=== PATIENT | female | born 1950 | race Caucasian/White ===

== ENCOUNTER 2019-01-27 07:10 | Emergency (ER) | payer MEDICARE, OTHER, SELFPAY ==
[2019-01-27 07:12] VITALS: BP 137/83; PULSE 87; RESP 14; TEMP 36.2; O2SAT 98; BMI 26.2
--- NOTE | 2019-01-27 07:18 | CT_ITS ---
STUDY: CT ABDOMEN AND PELVIS WITHOUT CONTRAST REASON FOR EXAM: Female, 68 years old. Left flank pain for 2 days. RADIATION DOSAGE (If Supplied By Facility): CTDIvol = ( 6.92 ) mGy, DLP = ( 359.55 ) mGycm TECHNIQUE: Transaxial images were obtained from the dome of the diaphragm to the symphysis pubis without oral contrast, and without intravenous contrast. Sagittal and coronal images were reconstructed. Individualized dose optimization techniques were used for this CT. COMPARISON: None. FINDINGS: The visualized lung bases are unremarkable. The heart is midline in position. The liver is enlarged. There is a hypodense lesion in the dome of the liver with questionable small peripheral calcification measuring about 4.8 cm with low attenuation value suggestive of cyst. There is another similar lesion in the anterior segment of the right lobe of the liver measuring about 2 cm. Further evaluation with ultrasound is recommended. Normal gallbladder and extrahepatic biliary system. Normal spleen. Normal pancreas. Normal bilateral adrenal glands. There is a 2.8 cm low-density lesion/cyst in the right kidney. There is a 2 mm nonobstructing stone in the upper pole of the right kidney. There is a 3 mm stone in the midpole of the left kidney. There is no evidence of hydronephrosis. Normal visualized stomach. Normal small intestine. There is fecal retention. There is mild diverticulosis of the descending colon. There is focal inflammatory changes, thickening with pericolonic stranding in the mid aspect of the descending colon consistent with acute diverticulitis. The appendix is visualized and appears normal. There is mild tortuosity of the abdominal aorta without evidence of aneurysm. Normal inferior vena cava. Normal retroperitoneum. Normal urinary bladder. There is absence of the uterus consistent with a prior hysterectomy. There is a small umbilical hernia containing fat. There are diffuse degenerative changes of the visualized lumbar spine. CT/Abdomen/Pelvis without Cont IMPRESSION: 1. Focal acute diverticulitis of the descending colon. No evidence of drainable abscess or free air. 2. Hepatomegaly. 3. Liver lesions as scribed above likely representing cysts better evaluated by ultrasound. 4. Small bilateral nonobstructing renal stones without evidence of hydronephrosis. 5. Right renal cyst. 6. Small umbilical hernia containing fat. Electronically Signed: Jemal Forrest MD at 9:02 EDT Tel , Service support ,
--- NOTE | 2019-01-27 07:23 | ED.DCSUM_ITS ---
History of Present Illness Chief Complaint: Flank Pain Informant: Patient Onset: Yesterday Current Severity: Mild Narrative: The patient presents complaining of left flank pain that began yesterday evening 10 PM, she is had normal bowel bladder habits, no nausea or vomiting no fever the pain was worse when she lay flat better when she more upright, presents the emergency department indicating the pain has resolved now she has history of hyp ertension hypothyroidism no GI ailments prior colonoscopy showed polyps only no exposures no antibiotics no ill contacts no tainted food currently again asymptomatic Past Medical History - Allergies and Home Meds Allergies/Adverse Reactions: Allergies No Known Allergies Allergy (Verified 01/27/19 07:15) Primary Care Physician: Luisito Shelton III, MD [Primary Care Provider] - Past Medical History: - - None except as above Review of Systems General: Denies: Chills, Fever, Sweats Eyes: Denies: Visual changes - bilaterally, Diplopia ENT: Denies: Rhinorrhea, Sore throat Cardiovascular: Denies: Chest pain, Palpitations Respiratory: Denies: Dyspnea, Cough, Dyspnea on exertion Gastrointestinal: Reports: Abdominal pain. Denies: Nausea, Vomiting, Diarrhea, Melena, Hematochezia Genitourinary: Denies: Dysuria, Hematuria, Frequency Musculoskeletal: Denies: Back pain, Extremity Pain Skin: Denies: Rash, Wounds Neurological: Denies: Headache, Weakness, Numbness Physical Exam Vital Signs/Narrative: Vital Signs Temp Pulse Resp BP Pulse Ox 01/27/19 07:12 97.1 F L 87 14 137/83 H 98 General: Well nourished, Well developed, No Acute Distress Head: Normocephalic, Atraumatic Eyes: Perrl, EOMI ENT: Moist mucous membranes, No rhinorrhea Neck: Supple, Nontender Cardiovascular: Regular rate, Regular rhythm, No murmurs Respiratory: No distress, CTA bilaterally, Chest nontender Abdomen: Soft, Nontender, Nondistended, Normal bowel sounds, - - Her abdomen is very soft she complains of pain to the left lower abdomen when it occurs but this area and the rest of her time abdominal exam is unremarkable the flanks unremarkable at this time she cannot explain why she would become a symptomatic she has not taken anything Back: Nontender, Normal Inspection Extremities: Nontender, No edema Skin: Normal color, No rash Neurological: Alert, Oriented x3, Cranial nerves II-XII grossly intact, Normal Strength, Normal Sensation Psychological: Normal affect, Normal Mood Diagnostic/Tx/Re-eval - Medical Decision Making Given all the above and her age screening labs urinalysis IV fluids pain management if needed CT abdomen Patient screening labs are all generally unremarkable please see those reports, the CT abdomen pelvis shows what appears to be diverticulitis descending colon no abscess no other acute abnormality please see that report on reevaluation she is resting company the bed no change in her status as above we discussed inpatient versus outpatient management she wants to go home she will be started on Flagyl and Cipro Naprosyn for pain she will follow-up with her family physicians for further management and possibly her gastroenterology attending, and return for change in symptoms she is comfortable his plan again wants to go home does not feel admission is warranted Home stable Final impression Diverticulitis, left-sided abdominal pain ED Disposition - Plan for ED Patient: Diagnosis: Diverticulitis Instructions: Diverticulitis Prescriptions: Ciprofloxacin [Cipro] 500 mg PO BID #14 tab Prescription Printed metroNIDAZOLE [Flagyl] 500 mg PO Q8H #21 tab Prescription Printed Naproxen [Naprosyn] 500 mg PO BID PRN #20 tab Prescription Printed Referrals: Luisito Shelton III, MD [Primary Care Provider] -
[2019-01-27 08:01] LABS: Absolute Lymphocyte Count 1.59 X10^3/uL (0.83-4.51); Absolute Neutrophil Count 7.7 X10^3/uL (2.0-7.7); Basophil# 0.03 X10^3/uL; Basophil% 0.3 % (0-1); Eosinophil# 0.17 X10^3/uL; Eosinophils% 1.7 % (0-5); Hematocrit 40.1 % (37-47); Hemoglobin 13.3 g/dL (12.0-15.0); Lymphocyte # 1.59 X10^3/ul (4.0); Lymphocyte % 15.5 % (19-41); Mean Corp Hgb Conc 33.2 g/dL (32-36); Mean Corpuscular Hgb 31.7 pg (27.0-32.0); Mean Corpuscular Volume 95.7 fL (81-99); Monocyte# 0.74 X10^3/uL; Monocyte% 7.2 % (0-10); NRBC Flagged by Analyzer 0 % (0-5); Neutrophil # 7.68 X10^3/uL (2.7-7.7); Platelet Count 192 K/mm3 (150-450); RBC Distribution Width CV 12.4 % (11.6-14.6); RBC Distribution Width SD 43.3 fl (35.1-43.9); Red Blood Count 4.19 M/mm3 (4.2-5.4); White Blood Count 10.2 K/mm3 (4.4-11.0)
[2019-01-27] MEDS: 0.9% Normal Saline 1,000 ML 125 ML IV (08:12)
[2019-01-27] MEDS: Ondansetron 4 MG/2 ML Vial IV (08:14)
[2019-01-27 08:17] LABS: AST(SGOT) 17 U/L (15-37); Alanine Aminotransfer ALT/SGPT 25 U/L (13-56); Alkaline Phosphatase 92 U/L (45-117); Anion Gap 8 (5-15); BUN 10 mg/dL (7-18); BUN/Creat Ratio 13.2 RATIO (10-20); Bilirubin, Direct 0.15 mg/dL (0.00-0.30); Chloride 104 mmol/L (98-107); Creatinine, Serum 0.76 mg/dL (0.55-1.02); EST Glomerular Filtration Rate 81 mL/min (>60); Est Glom Filt Rate - Afr Amer 99 mL/min (>60); Estimated Creatinine Clearance 51.81 ml/min; Globulin 3.6 g/dL (2.2-4.2); Glucose 112 mg/dL (74-106); Lipase 76 U/L (73-393); Protein, Total 7.6 g/dL (6.4-8.2); Sodium Level 141 mmol/L (136-145)
[2019-01-27 08:24] LABS: Color, Urine Yellow (Yellow); Glucose, Dipstick Normal (Normal); Ketone-Dipstick Negative (Negative); Leukocyte Esterase-Dipstick 100 /ul (Negative); Nitrite-Dipstick Negative (Negative); Occult Blood-Urine 25 /ul (Negative); Protein-Dipstick Negative (Negative); Urine Bilirubin Dipstick Negative (Negative); Urine Clarity Clear (Clear); Urine Urobilinogen Normal (Normal)
[2019-01-27 08:33] LABS: Red Blood Cells-Urine 0-5 SEEN /hpf (0-5); Squamous Epithelial Cells - UA 0-5 SEEN /hpf (5-10); White Blood Cells 0-5 SEEN /hpf (0-5)
[2019-01-27 08:34] LABS: Bacteria RARE /hpf (None Seen); Mucous, Urine 1+ /hpf (<or=2+)
[2019-01-27] MEDS: metroNIDAZOLE 500 MG/100 ML BAG 100 MG IV (10:10)
[2019-01-27 10:15] VITALS: RESP 18
[2019-01-27] MEDS: Ciprofloxacin 400 MG/200 ML BAG 200 MG IV (11:16)
[2019-01-27 12:32] VITALS: RESP 18
== END 2019-01-27 12:38 | disposition home or self-care (01) ==
LOC: ED 07:32
PROVIDERS: Emergency Provider Emergency Medicine; Family Provider Family Medicine; PCP Family Medicine
DX: K57.32 Diverticulitis of large intestine without perforation or abscess without bleeding (principal)
CPT/HCPCS: 74176; 80048; 80076; 81001; 83690; 85025; 96361; 96365; 96367; 96375; 99283; J7030; A4216; J0744; J2405

== ENCOUNTER → 2019-02-12 07:45 | Outpatient (CLI) | payer MEDICARE, OTHER, SELFPAY ==
[2019-01-27 07:12] VITALS: BMI 26.2
--- NOTE | 2019-02-12 07:49 | US_ITS ---
STUDY: ABDOMINAL ULTRASOUND - RIGHT UPPER QUADRANT REASON FOR VISIT: Female, 68 years old. History of hepatic cysts. TECHNIQUE: Ultrasound evaluation of the right upper quadrant was performed with real-time and static hodgson-scale imaging. TECHNICAL QUALITY: Adequate. COMPARISON: Comparison is made with prior CT scan of the abdomen dated January 27, 2019. FINDINGS: Liver: The liver measures 17.6 cm. There is increased echogenicity consistent with fatty infiltration. The bile ducts are within normal limits. There is hepatic color flow. The direction of portal flow is hepatopetal. There is a 2.5 cm x 2.1 Joby by 1.1 cm cyst in the right lobe. There is also evidence of a 5.4 cm x 4.8 cm x 3.3 cm septated cyst. This corresponds to the CT findings. Gallbladder: Normal distended gallbladder. The gallbladder wall measures 2.4 mm. There is a negative sonographic Wong's sign. There is no pericholecystic fluid. There are no gallstones. Common Bile Duct (C.B.D.): The common bile duct measures 2.6 mm. Pancreas: Normal size of the head, body and tail of the pancreas. There is normal echogenicity of the pancreas. There is no demonstrated pancreatic mass or cyst. Right Kidney: Normal size of the right kidney. The right kidney measures 12.0 cm x 6.3 cm x 4.8 cm. Normal renal cortex. The right cortex measures 1.2 cm. There is a 3.3 cm x 2.8 cm x 2.8 cm cyst. There is no right hydronephrosis. US/Liver IMPRESSION: Hepatic cysts corresponding to the CT findings. Right renal cyst. Electronically Signed: Keith Winston, at 14:28 EDT , Service support ,
== END ==
PROVIDERS: Family Provider Family Medicine; PCP Family Medicine; Referring Provider Family Medicine; Visit Provider Family Medicine
DX: K76.89 Other specified diseases of liver (principal)
CPT/HCPCS: 76705

== ENCOUNTER 2019-08-21 06:57 | Day surgery (SDC) | payer MEDICARE, OTHER, SELFPAY ==
[2019-07-19 08:55] VITALS: BMI 26.2
--- NOTE | 2019-07-19 08:55 | HP_ITS ---
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 Is patient in pain?: No Allergies No Known Allergies Allergy (Verified 07/19/19 08:45) Medications cholecalciferol (vitamin D3) 4,000 unit capsule 4,000 unit PO DAILY 07/19/19 [History] estradiol 1 g VAGINAL QWEEK 07/19/19 [History Confirmed 07/19/19] hydrochlorothiazide 12.5 mg capsule PO 07/19/19 [History Confirmed 07/19/19] hydrocortisone 1 % topical cream 1 applic TOPICAL BID PRN 07/19/19 [History Confirmed 07/19/19] levothyroxine 50 mcg tablet PO 07/19/19 [History Confirmed 07/19/19] magnesium 30 mg tablet 30 mg PO DAILY 07/19/19 [History Confirmed 07/19/19] multivitamin,gx-hpva-mestadnm 1 tab PO DAILY 07/19/19 [History Confirmed 07/19/19] zolpidem 10 mg tablet PO 07/19/19 [History Confirmed 07/19/19] Is last menstrual period known: No Post menopausal: Yes Patient : No PFSH Medical History (Updated 07/19/19 @ 08:52 by Troy Shelton MD) Personal history of colonic polyps (Acute) Family history of malignant neoplasm of colon in first degree relative diagnosed when younger than 60 years of age (Acute) History of diverticulitis (Acute ~01/2019) History of melanoma (Acute) Hypothyroidism (Acute) Surgical History (Updated 07/19/19 @ 08:43 by Cesia Cruz) History of colonoscopy (Acute ~2014) History of partial hysterectomy (Acute) History of tonsillectomy (Acute) Family History (Updated 07/19/19 @ 08:44 by Cesia Cruz) Mother Breast cancer Sister Breast cancer Colon cancer Father Cancer lymphoma Social History (Updated 07/19/19 @ 08:55 by Troy Shelton MD) Smoking Status: Former smoker HPI HPI HPI: BROOKE SNYDER, is a 68 F who presents to the office today for HPI HPI Surgical H&P: Yes HPI: BROOKE SNYDER, is a 68 F who presents to the office today for surgical consultation regarding a family history of colon cancer in her sister at age 55 and a personal history of previous colon polyps. The patient most recently had a colonoscopy performed by Dr. Nathaniel Rowe on August 08, 2014. No polyps were identified at that time five-year follow-up was recommended. It is of note that the patient enjoys good health. She did present to the emergency room on January 27, 2019 because of left flank pain. A CT scan was felt to be consistent with acute descending colon diverticulitis. The patient had had a significant amount of nuts prior to that. It also detected an umbilical hernia. There was hepatomegaly. There were liver lesions felt likely to be cysts. Some small renal stones and renal cysts. Her white blood cell count at that time was 10.2 with a hemoglobin 13.3 hematocrit 4.1 and platelet count 192,000. BUN creatinine normal. Liver function tests normal. On February 9019 she had a liver ultrasound. That confirmed hepatic cysts correlating with the CT findings and a right renal cyst. She denies any change of bowel habits. No bright red blood per rectum or melena. No diarrhea. No abdominal pain. She otherwise enjoys good health. She exercises routinely at least 3 times per week. ROS General General: No weight change, appetite, fatigue, colon cancer, breast cancer or weakness HEENT HEENT: No difficulty swallowing, eye injury, eye surgery, swollen glands or hoarseness Endo Endocrine: No thyroid disease, diabetes mellitus, thyroid cancer, Hair loss, heat intolerance or cold intolerance Musc Musculoskeletal: No back problems, arthritis, rheumatoid arthritis, gout or joint pain Cardio Cardiovascular: No murmur, pacemaker, heart disease, atrial fibrillation, high blood pressure, heart attack, heart stent, palpitations, shortness of breat with exertion or chest pain Resp Respiratory: No shortness of breath, No sleep apnea, No cough, No COPD, No asthma, No emphysema, No wheezing Gastro Gastrointestinal: No abdominal pain, No nausea or vomiting, No diarrhea, No constipation, No blood in stool, No acid reflux, No hemorrhoids, No ulcers, No gallbladder problem, No black,tarry stools Huey Hematologic: No blood thinners, No blood disorders, No bleeding, No anemia, No blood clots Neuro Neurologic: No weakness Exam Const General: cooperative, healthy appearing, comfortable, no acute distress Nutritional Appearance: average body habitus Orientation: alert, awake, oriented x3 HENMT Head: normal to inspection Chest Chest palpation & inspection: normal inspection of the chest Resp Effort & Inspection: normal respiratory effort Auscultation: clear to auscultation bilaterally Cardio Rate: regular rate Rhythm: regular rhythm Heart Sounds: no murmurs GI Palpation: soft, no hepatosplenomegaly Auscultation: normal bowel sounds Neuro Cognition: normal cognition Extrem General: no calf tenderness bilaterally Psych Affect: normal affect Assessment & Plan Problems 1. Family history of malignant neoplasm of colon in first degree relative diagnosed when younger than 60 years of age Z80.0 2. Personal history of colonic polyps Z86.010 Plan I recommended the patient a colonoscopy with possible biopsy or polypectomy as indicated. She is aware of the technique, benefit, risk of alternatives. At her most recent colonoscopy performed by Dr. Nathaniel Rowe she required fentanyl and 7 mg of Versed and Benadryl as well. With that in mind we will proceed with monitored anesthesia care. Also to she has had a bout of descending colon diverticulitis January 2019 and she had not previously had any bouts. I appreciate the opportunity of assisting with her surgical care Cc: Dr. Luisito Shelton, III Troy Shelton M.D., F.A.C.S. Coding Level of Care Code Off vis,new,level 3 Diagnoses Family history of malignant neoplasm of colon in first degree relative diagnosed when younger than 60 years of age Z80.0 Personal history of colonic polyps Z86.010 07/19/19 0855 <Electronically signed by Troy shankar MD> Date _ Troy Shelton MD I have re-examined the patient. There are no clinical changes since date of exam.
[2019-08-21] VITALS (7 sets, daily range): BP systolic 103–121; BP diastolic 68–79; PULSE 70–76; RESP 14–16; TEMP 36.6–36.8; O2SAT 97–98; BMI 25.6
[2019-08-21] MEDS: Lactated Ringers 1,000 ML 100 ML IV (07:24)
--- NOTE | 2019-08-21 08:00 | COLBX_PTH ---
PATIENT: BROOKE SNYDER LOC: EN U#:[id number] AGE/SX: 68/F ROOM: RE08/21/[address]: Dr. Troy Shelton MD : 1950 BED: DIS: 08/21/2019 SPEC #: [id number] RECD: 08/21/19 09:17 STATUS: RACHAEL RELuis #: [id number] TRISH: 08/21/19 08:[address]: Troy Shelton DEPT: SURGICAL PATHOLOGY RECD BY: René Ruiz ENTERED: 08/21/19 10:48 SP TYPE: COLON BX OT DR: Dr. Luisito Shelton III, MD Tissues: Sigmoid colon biopsy Procedures: Surgery Specimen Level IV HEADER OPERATION: Colonoscopy PRE-OP DIAGNOSIS: Colon polyps TISSUE SUBMITTED: Proximal sigmoid polyp MICROSCOPIC DIAGNOSIS Proximal sigmoid polyp, biopsy: Hyperplastic polyp. SJ:ezio 08/22/19 MICROSCOPIC DESCRIPTION Slides are reviewed. GROSS DESCRIPTION Received in fixative is one container labeled with the patient's name and designated proximal sigmoid polyp. The specimen consists of one irregular fragment of light martini soft tissue that measures 0.6 x 0.5 x 0.1 cm. The specimen is totally submitted in one cassette. / SJ:ezio 08/21/19 TC:1 CPT: 90070
--- NOTE | 2019-08-21 08:25 | OP.CCLET_ITS ---
08/21/2019 Luisito Shelton [address] [place] [address] Re : Colonoscopy procedure for Geovanny Calderon Dear Dr. Shelton This procedure was performed on Wednesday, August 21, 2019. My impressions and recommendations are as follows: Impressions : - One 6 mm polyp in the proximal sigmoid colon, removed with a cold snare. Resected and retrieved. - Diverticulosis in the sigmoid colon. - The examination was otherwise normal. Recommendations : - Discharge patient to home. - Resume previous diet. - Continue present medications. - Repeat colonoscopy in 5 years for surveillance. - Telephone my office for pathology results in 1 week. My findings are described in the full procedure note, which is enclosed. If I can be of further assistance, please feel free to contact me at Doctor phone number(s): Work: . Sincerely, Troy Shelton MD 08/21/2019 8:25:29 AM This report has been signed electronically.
--- NOTE | 2019-08-21 08:25 | OP.COLON_ITS ---
Patient Name: Geovanny Calderon Procedure Date: 08/21/2019 7:55 AM Date of : 1950 Age: 68 Procedure: Colonoscopy Indications: High risk colon cancer surveillance: Personal history of colonic polyps Providers: Troy Shelton MD Referring MD: Luisito Shelton Iii Medicines: See the Anesthesia note for documentation of the administered medications Patient Profile: Last Colonoscopy: August 2014. Complications: No immediate complications. Procedure: Pre-Anesthesia Assessment: - Prior to the procedure, a History and Physical was performed, and patient medications and allergies were reviewed. The patient's tolerance of previous anesthesia was also reviewed. The risks and benefits of the procedure and the sedation options and risks were discussed with the patient. All questions were answered, and informed consent was obtained. Prior Anticoagulants: The patient has taken no previous anticoagulant or antiplatelet agents. ASA Grade Assessment: II - A patient with mild systemic disease. After reviewing the risks and benefits, the patient was deemed in satisfactory condition to undergo the procedure. After I obtained informed consent, the scope was passed under direct vision. Throughout the procedure, the patient's blood pressure, pulse, and oxygen saturations were monitored continuously. The Colonoscope was introduced through the anus and advanced to the cecum, identified by appendiceal orifice and ileocecal valve. The colonoscopy was performed without difficulty. The patient tolerated the procedure well. The quality of the bowel preparation was good. The ileocecal valve and the appendiceal orifice were photographed. Scope In: 8:03:48 AM Scope Withdrawal Time 0 hours 9 minutes 25 seconds Scope Out: 8:19:30 AM Total Procedure Duration Time 0 hours 15 minutes 42 seconds Findings: The perianal and digital rectal examinations were normal. A 6 mm polyp was found in the proximal sigmoid colon. The polyp was sessile. The polyp was removed with a cold snare. Resection and retrieval were complete. Multiple diverticula were found in the sigmoid colon. The exam was otherwise without abnormality. Impression: - One 6 mm polyp in the proximal sigmoid colon, removed with a cold snare. Resected and retrieved. - Diverticulosis in the sigmoid colon. - The examination was otherwise normal. Recommendation: - Discharge patient to home. - Resume previous diet. - Continue present medications. - Repeat colonoscopy in 5 years for surveillance. - Telephone my office for pathology results in 1 week. Procedure Code(s): --- Professional --- 92664, Colonoscopy, flexible; with removal of tumor(s), polyp(s), or other lesion(s) by snare technique Diagnosis Code(s): --- Professional --- Z86.010, Personal history of colonic polyps D12.5, Benign neoplasm of sigmoid colon K57.30, Diverticulosis of large intestine without perforation or abscess without bleeding CPT copyright 2017 [employer]. All rights reserved. The codes documented in this report are preliminary and upon assistant case manager review may be revised to meet current compliance requirements. Troy Shelton MD 08/21/2019 8:25:29 AM This report has been signed electronically. Number of Addenda: 0 Note Initiated On: 08/21/2019 7:55 AM
--- NOTE | 2019-08-22 15:02 | PCM.HP.STD ---
Problem List (1) Personal history of colonic polyps Status: Acute (2) Family history of malignant neoplasm of colon in first degree relative diagnosed when younger than 60 years of age Status: Acute History of Present Illness Date of Admission: 08/21/19 The patient is a 68 year old F this patient has a personal history of colon polyps and a family history of colon cancer in her sister who at age 55 developed disease. Her previous colonoscopy was August 08, 2014. January 2019 she had a bout of diverticulitis. She presents now for endoscopic evaluation. Past Medical History Medical History: Medical History (Last Updated 07/19/19 @ 08:42 by Cesia Cruz) Personal history of colonic polyps (Acute) Z86.010 Family history of malignant neoplasm of colon in first degree relative diagnosed when younger than 60 years of age (Acute) Z80.0 History of diverticulitis Onset Date: ~01/2019 Z87.19 History of melanoma Z85.820 Hypothyroidism E03.9 Allergies latex Allergy (Verified 08/21/19 07:06) Rash Home Medications: Ambulatory Orders Medication Instructions Recorded cholecalciferol (vitamin D3) 4,000 4,000 unit PO DAILY 07/19/19 unit capsule estradiol 1 g VAGINAL QWEEK 07/19/19 hydrochlorothiazide 12.5 mg capsule 12.5 mg PO DAILY 07/19/19 hydrocortisone 1 % topical cream 1 applic TOPICAL BID PRN 07/19/19 levothyroxine 50 mcg tablet 50 mcg PO DAILY 07/19/19 multivitamin,wa-zoqf-uztjeveq 1 tab PO DAILY 07/19/19 zolpidem 10 mg tablet 10 mg PO PRN PRN 07/19/19 Surgical History: Surgical History (Last Updated 07/19/19 @ 08:43 by Cesia Cruz) History of colonoscopy Onset Date: ~2014 Z98.890 History of partial hysterectomy Z90.711 History of tonsillectomy Z90.89 Smoking Status: Former smoker Tobacco Use: Non-smoker Review of Systems Constitutional: Denies: Anorexia Cardiovascular: Denies: Chest Pain Respiratory: Denies: Cough Gastrointestinal: Denies: Abdominal Pain, Melena Endocrine: Denies: Change in Body Habitus VTE Information - Inpt Only VTE Present on Admission: No - Physical Exam Vitals/I&O's: Vital Signs Temp Pulse Resp BP Pulse Ox 98.3 F 74 16 113/79 98 08/21/19 08:39 08/21/19 08:39 08/21/19 08:39 08/21/19 08:39 08/21/19 08:39 Oxygen Delivery Method Room Air Weight: 156 lb 4.924 oz Body Mass Index (BMI) 25.6 Intake and Output for Last 24 Hours 08/20/19 08/21/19 08/22/19 23:59 23:59 23:59 Intake Total 500 / 500 Balance 500 / 500 General: Alert, Oriented x3, Cooperative, No apparent distress Lungs: Clear to auscultation Cardiovascular: Regular rate, Regular Rhythm Abdomen: Bowel Sounds Present, Soft Assessment/Plan All Active Problems (Last Updated 07/19/19 @ 08:42 by Cesia Cruz) Personal history of colonic polyps (Acute) Family history of malignant neoplasm of colon in first degree relative diagnosed when younger than 60 years of age (Acute) I plan to proceed with a surveillance colonoscopy with possible biopsy or polypectomy is indicated. The patient is aware of the technique, benefit, risk, alternatives. We will proceed as noted. Additional details can be found in the previous office note. Troy Shelton M.D., F.A.C.S.
== END 2019-08-21 09:13 | disposition home or self-care (01) ==
LOC: EN 06:58 → AC 06:59 → ACINP 07:53 → AC 07:53
PROVIDERS: PCP Family Medicine; Referring Provider Family Medicine; Visit Provider Surgery
PROC: 0DJD8ZZ Inspection of Lower Intestinal Tract, Via Natural or Artificial Opening Endoscopic (ICD-10-PCS; CPT 45378; principal; 2019-08-21 07:55)
DX: Z12.11 Encounter for screening for malignant neoplasm of colon (principal); Z86.010 Personal history of colon polyps; K57.30 Diverticulosis of large intestine without perforation or abscess without bleeding; D12.5 Benign neoplasm of sigmoid colon; Z80.0 Family history of malignant neoplasm of digestive organs; E03.9 Hypothyroidism, unspecified; Z85.820 Personal history of malignant melanoma of skin; Z79.899 Other long term (current) drug therapy; Z87.891 Personal history of nicotine dependence
CPT/HCPCS: 45385; 88305; J7120; J2405

== ENCOUNTER → 2023-04-08 | Outpatient (CLI) | payer MEDICARE, OTHER, SELFPAY ==
--- NOTE | 2023-04-08 09:34 | EKG12_ITS ---
Test Reason : PRE OP Blood Pressure : / mmHG Vent. Rate : 078 BPM Atrial Rate : 078 BPM P-R Int : 174 ms QRS Dur : 092 ms QT Int : 436 ms P-R-T Axes : 070 035 135 degrees QTc Int : 497 ms Sinus rhythm with Premature atrial complexes ST & T wave abnormality, consider lateral ischemia Prolonged QT Abnormal ECG No previous ECGs available Confirmed by [employer] MCKENNA, CELSA ([id number]), editor in chief newspaper LEXI CHAUHAN ([id number]) on 04/18/2023 7:32:24 AM Referred By: Jovany Garcia Confirmed By:ANNIE MARINELLI MD
== END | disposition home or self-care (01) ==
LOC: PSN 09:30
PROVIDERS: PCP Family Medicine; Referring Provider Physician Assistant; Visit Provider Physician Assistant
DX: Z01.810 Encounter for preprocedural cardiovascular examination (principal)
CPT/HCPCS: 93005

== ENCOUNTER → 2023-05-04 | Outpatient (CLI) | payer MEDICARE, OTHER, SELFPAY ==
[2023-05-04 16:10] LABS: Hematocrit 37.8 % (37-47); Hemoglobin 12.4 g/dL (12.0-15.0); Mean Corp Hgb Conc 32.8 g/dL (32-36); Mean Corpuscular Hgb 32.4 pg (27.0-32.0); Mean Corpuscular Volume 98.7 fL (81-99); Platelet Count 209 K/mm3 (150-450); RBC Distribution Width SD 43.8 fl (35.1-43.9); Red Blood Count 3.83 M/mm3 (4.2-5.4); White Blood Count 5.9 K/mm3 (4.4-11.0)
[2023-05-04 16:28] LABS: Anion Gap 5 (5-15); BUN 19 mg/dL (7-18); BUN/Creat Ratio 27.3 RATIO (10-20); Calcium,Total 8.6 mg/dL (8.5-10.1); Chloride 105 mmol/L (98-107); EST Glomerular Filtration Rate 88 mL/min (>60); Est Glom Filt Rate - Afr Amer 107 mL/min (>60); Glucose 95 mg/dL (74-106); Potassium 3.8 mmol/L (3.5-5.1); Sodium Level 141 mmol/L (136-145)
== END | disposition home or self-care (01) ==
LOC: LAB 15:09
PROVIDERS: PCP Family Medicine; Referring Provider Physician Assistant Surgical; Visit Provider Physician Assistant Surgical
DX: S83.242D Other tear of medial meniscus, current injury, left knee, subsequent encounter (principal)
CPT/HCPCS: 36415; 80048; 85027

== ENCOUNTER 2024-09-14 08:00 | Day surgery (SDC) | payer MEDICARE, OTHER, SELFPAY ==
--- NOTE | 2024-09-10 15:22 | PAT.ANE_ITS ---
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 When Was Last Pacemaker Check QUESTION #4 FULL TEXT: You/Your Family Experience fever (hyperthermia) with Anesthesia Last Oral Intake Last Oral intake: Last Oral Intake NPO since Meds taken in AM with sips of water? 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 Female Yes 09/10/24 15:12 HX of Motion Sickness No 09/10/24 15:12 HX of N/V After Surgery No 09/10/24 15:12 Non-Smoker Yes 09/10/24 15:12 Duration of Surgery greater No 09/10/24 15:12 than 60 minutes Number of Risk Factors 2 09/10/24 15:12 PONV Score Moderate Risk 09/10/24 15:12 Height & Weight Height & Weight: Anesthesia: Height & Weight Height 5 ft 4 in 07/18/24 08:50 Respiratory Assessment Respiratory Assessment - cap machine operator: Respiratory Tract Infection Hx - cap machine operator Hx Respiratory Tract Infection No 09/10/24 15:12 STOP Sleep Apnea STOP Sleep Apnea - cap machine operator: STOP Sleep Apnea - cap machine operator Hx Hypertension No: BORDERLINE 09/10/24 15:12 Hx Sleep Apnea No 09/10/24 15:12 CPAP BIPAP Do you snore loudly (louder No 09/10/24 15:12 than talking or can be heard Do you often feel tired/ No 09/10/24 15:12 fatigued/ sleepy during daytime? Has anyone observed you stop No 09/10/24 15:12 breathing during sleep? STOP Results Negative 09/10/24 15:12 QUESTION #5 FULL TEXT : Do you snore loudly (louder than talking or can be heard through closed doors)? 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 Specify any problems Hx of Preganancy in last 3 No 09/10/24 15:12 Months Nurse Filling Out Transfusion VCHRISTIN 09/10/24 15:12 & Questions: Date: 09/10/24 09/10/24 15:12 Time: 15:14 09/10/24 15:12 Patient unable to answer at this time (ie. confused, unrespo /Reproduction History /Reproductive History - cap machine operator: /Reproductive Hx- cap machine operator Hx Now No 09/10/24 15:12 Gestational Age (in weeks): EDC: Hx Hx Para Hx Section SAB No 09/10/24 15:12 PFSH Medical History (Updated 09/10/24 @ 15:12 by Roz Chamberlain) Wears contact lenses Wears glasses Post-menopausal Cancer Alcohol use Thyroid disease Arthritis Kidney stones Former smoker History of echocardiogram History of stress test Hypertension History of irregular heartbeat History of Mohs micrographic surgery for skin cancer Personal history of colonic polyps Family history of malignant neoplasm of colon in first degree relative diagnosed when younger than 60 years of age History of diverticulitis (~01/2019) Hypothyroidism History of melanoma Home Medications ?Medication ?Instructions ?Recorded ?Last Taken ?Type hydrochlorothiazide 12.5 mg capsule 12.5 mg PO DAILY 0 07/19/19 Unknown History levothyroxine 50 mcg tablet 50 mcg PO DAILY 07/19/19 U nknown History multivitamin,nd-nxvb-dmnhktjj 1 tab PO DAILY 07/19/19 Unknown History (Complete Multivitamin tablet) zolpidem 10 mg tablet 10 mg PO PRN PRN Sleep 07/19 Unknown History estradiol 0.01% (0.1 mg/gram) See Rx Instructions vagi nal 11/24/20 Unknown Rx vaginal cream .COMPLEX #42.5 grams calcium 500 mg 1 tab PO QDAY 07/18/24 Unkno wn History (carb,gluconate)-magnesium 250 mg (gluc,oxide) tablet Allergy/AdvReac Type Severity Reaction Status Date / Time No Known Allergies Allergy Verified 09/10/24 15:04 Family History (Updated 07/18/24 @ 08:45 by Genesis Adamson) Mother Breast cancer Sister Breast cancer Colon cancer, Onset Age: 50 Father Cancer lymphoma Surgical History (Updated 09/10/24 @ 15:12 by Roz Chamberlain) History of partial hysterectomy History of tonsillectomy History of colonoscopy (~2014) Social History household members: spouse number of children: 2 current occupational status: retired history of recent travel: No Smoking Status: Former smoker alcohol intake: current alcohol intake frequency: 0-2 drinks per day substance use type: does not use what type of physical activity do you participate in: walking frequency: 5-6 times per week seatbelt use: always do you feel safe at home: Yes additional social history: - Hayden Audit: Pertinent Findings Pertinent Findings EKG Perinent findings: 04/08/2023. Sinus rhythm with premature atrial complexes. ST and T wave abnormality, consider lateral ischemia. Recommendation Anesthesia Recommendation Anesthesia recommendation: OPTIMIZED for anesthesia
--- NOTE | 2024-09-14 08:05 | PCM.PRE.AN2 ---
ASA Classification* ASA Classification ASA Classification: 2 Assessment & Plan Anesthesia* Anesthesia Assessment Anesthesia Assessment: Discussed sedation and/or anesthesia options, risks, benefits, and alternatives with patient/parents/legal guardian/POA. Questions invited. The patient/parents/legal guardian/POA seems to understand and agrees to proceed with anesthesia plan. Reviewed the physical assessment, medical history, allergy history and patient home medications list prior to surgery/procedure/anesthetic and documented any changes. Performed airway and anesthesia risk assessments. Anesthesia Type Anesthesia Type: MAC Anesthesia Focused Assessment* Airway Assessment Mouth opens: >3 cm Mallampati Score: II Focused Labs Anesthesia Preop lab: CBC WBC 5.9 K/mm3 (4.4-11.0) 05/04/23 15:13 05/04/23 RBC 3.83 M/mm3 (4.2-5.4) L 05/04/23 15:13 05/04/23 Hgb 12.4 g/dL (12.0-15.0) 05/04/23 15:13 05/04/23 Hct 37.8 % (37-47) 05/04/23 15:13 05/04/23 Plt Count 209 K/mm3 (150-450) 05/04/23 15:13 05/04/23 CHEMISTRY Potassium 3.8 mmol/L (3.5-5.1) 05/04/23 15:13 05/04/23 Sodium 141 mmol/L (136-145) 05/04/23 15:13 05/04/23 BUN 19 mg/dL (7-18) H 05/04/23 15:13 05/04/23 Creatinine 0.70 mg/dL (0.55-1.02) 05/04/23 15:13 05/04/23 Glucose 95 mg/dL (74-106) 05/04/23 15:13 05/04/23 COAG Pre-Assessment Diagnosis/Proposed Procedure Planned Operative Procedure(s): COLONOSCOPY-OA Anesthesia History 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 When Was Last Pacemaker Check QUESTION #4 FULL TEXT: You/Your Family Experience fever (hyperthermia) with Anesthesia Last Oral Intake Last Oral intake: Last Oral Intake NPO since Meds taken in AM with sips of water? 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 Female Yes 09/10/24 15:12 HX of Motion Sickness No 09/10/24 15:12 HX of N/V After Surgery No 09/10/24 15:12 Non-Smoker Yes 09/10/24 15:12 Duration of Surgery greater No 09/10/24 15:12 than 60 minutes Number of Risk Factors 2 09/10/24 15:12 PONV Score Moderate Risk 09/10/24 15:12 Height & Weight Height & Weight: Anesthesia: Height & Weight Height 5 ft 4 in 07/18/24 08:50 Respiratory Assessment Respiratory Assessment - automotive heavy mechanic: Respiratory Tract Infection Hx - automotive heavy mechanic Hx Respiratory Tract Infection No 09/10/24 15:12 STOP Sleep Apnea STOP Sleep Apnea - automotive heavy mechanic: STOP Sleep Apnea - automotive heavy mechanic Hx Hypertension No: BORDERLINE 09/10/24 15:12 Hx Sleep Apnea No 09/10/24 15:12 CPAP BIPAP Do you snore loudly (louder No 09/10/24 15:12 than talking or can be heard Do you often feel tired/ No 09/10/24 15:12 fatigued/ sleepy during daytime? Has anyone observed you stop No 09/10/24 15:12 breathing during sleep? STOP Results Negative 09/10/24 15:12 QUESTION #5 FULL TEXT : Do you snore loudly (louder than talking or can be heard through closed doors)? 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 Specify any problems Hx of Preganancy in last 3 No 09/10/24 15:12 Months Nurse Filling Out Transfusion VCHRISTIN 09/10/24 15:12 & Questions: Date: 09/10/24 09/10/24 15:12 Time: 15:14 09/10/24 15:12 Patient unable to answer at this time (ie. confused, unrespo /Reproduction History /Reproductive History - automotive heavy mechanic: /Reproductive Hx- automotive heavy mechanic Hx Now No 09/10/24 15:12 Gestational Age (in weeks): EDC: Hx Hx Para Hx Section SAB No 09/10/24 15:12 PFSH Medical History Wears contact lenses Wears glasses Post-menopausal Cancer Alcohol use Thyroid disease Arthritis Kidney stones Former smoker History of echocardiogram History of stress test Hypertension History of irregular heartbeat History of Mohs micrographic surgery for skin cancer Personal history of colonic polyps Family history of malignant neoplasm of colon in first degree relative diagnosed when younger than 60 years of age History of diverticulitis (~01/2019) Hypothyroidism History of melanoma Home Medications ?Medication ?Instructions ?Recorded ?Last Taken ?Type hydrochlorothiazide 12.5 mg capsule 12.5 mg PO DAILY 07/19/19 Unknown History levothyroxine 50 mcg tablet 50 mcg PO DAILY 07/19/19 Unknown History multivitamin,gt-drqh-tcfaevjx 1 tab PO DAILY 07/19/19 Unknown History (Complete Multivitamin tablet) zolpidem 10 mg tablet 10 mg PO PRN PRN Sleep 07/19/19 Unknown History estradiol 0.01% (0.1 mg/gram) See Rx Instructions vaginal 11/24/20 Unknown Rx vaginal cream .COMPLEX #42.5 grams calcium 500 mg 1 tab PO QDAY 07/18/24 Unknown History (carb,gluconate)-magnesium 250 mg (gluc,oxide) tablet Allergy/AdvReac Type Severity Reaction Status Date / Time No Known Allergies Allergy Verified 09/10/24 15:04 Family History Mother Breast cancer Sister Breast cancer Colon cancer, Onset Age: 50 Father Cancer lymphoma Surgical History History of partial hysterectomy History of tonsillectomy History of colonoscopy (~2014) Social History household members: spouse number of children: 2 current occupational status: retired history of recent travel: No Smoking Status: Former smoker alcohol intake: current alcohol intake frequency: 0-2 drinks per day substance use type: does not use what type of physical activity do you participate in: walking frequency: 5-6 times per week seatbelt use: always do you feel safe at home: Yes additional social history: - Hayden Review of Systems (Anesthesia) ROS Narrative System reviewed and no additional complaints, except as documented.
[2024-09-14 08:13] VITALS: BP 113/92; PULSE 87; RESP 16; TEMP 37.3; O2SAT 98; BMI 25.6
--- NOTE | 2024-09-14 08:50 | HP.PCM_ITS ---
HPI - General HPI Narrative BROOKE SNYDER, is a 73 F who presents for surveillance colonoscopy. Patient's last colonoscopy was 5 years ago and polyps were identified. She reports no abdominal pain or blood in the stool. [facility] Medical History Wears contact lenses Wears glasses Post-menopausal Cancer Alcohol use Thyroid disease Arthritis Kidney stones Former smoker History of echocardiogram History of stress test Hypertension History of irregular heartbeat History of Mohs micrographic surgery for skin cancer Personal history of colonic polyps Family history of malignant neoplasm of colon in first degree relative diagnosed when younger than 60 years of age History of diverticulitis (~01/2019) Hypothyroidism History of melanoma Home Medications ?Medication ?Instructions ?Recorded ?Last Taken ?Type hydrochlorothiazide 12.5 mg capsule 12.5 mg PO DAILY 0 07/19/19 Unknown History levothyroxine 50 mcg tablet 50 mcg PO DAILY 07/19/19 U nknown History multivitamin,ha-ezbz-mcckeeuw 1 tab PO DAILY 07/19/19 Unknown History (Complete Multivitamin tablet) zolpidem 10 mg tablet 10 mg PO PRN PRN Sleep 07/19 Unknown History estradiol 0.01% (0.1 mg/gram) See Rx Instructions vagi nal 11/24/20 Unknown Rx vaginal cream .COMPLEX #42.5 grams calcium 500 mg 1 tab PO QDAY 07/18/24 Unkno wn History (carb,gluconate)-magnesium 250 mg (gluc,oxide) tablet Allergy/AdvReac Type Severity Reaction Status Date / Time No Known Allergies Allergy Verified 09/14/24 08:14 Family History Mother Breast cancer Sister Breast cancer Colon cancer, Onset Age: 50 Father Cancer lymphoma Surgical History History of partial hysterectomy History of tonsillectomy History of colonoscopy (~2014) Social History household members: spouse number of children: 2 current occupational status: retired history of recent travel: No Smoking Status: Former smoker alcohol intake: current alcohol intake frequency: 0-2 drinks per day substance use type: does not use what type of physical activity do you participate in: walking frequency: 5-6 times per week seatbelt use: always do you feel safe at home: Yes additional social history: - Hayden Past Medical/Surgical History Planned Operation Planned Operative Procedure(s): COLONOSCOPY-OA S.O.S: No Previous Hospitalizations/Surgeries HX Hospitalizations: No HX of Surgeries: HYSTERECTOMY TONSILS SKIN CA-MELANOMA TUBAL Any Problems With Anesthesia: Yes (NAUSEA) You/Your Family Experience Fever (Hyperthermia) With Anes: No Cholinesterase deficiency: No Cardiovascular Hx Chest Pain within Last 2 months: No Hx of Irregular Heartbeat and/or Afib: Yes (IRREG) Hx Heart Attack: No Hx Congestive Heart Failure: No Hx Rheumatic Fever: No Hx Hypertension: No (BORDERLINE) Hx Internal Defibrillator: No Hx Pacemaker: No Hx Cardiac Catheterization: No Hx Cardiac Surgery/Stents/Etc.: No Hx Stress Test: Yes (6 YRS AGO [facility]) Hx Pain in Legs when Walking/Leg Cramps: No Respiratory Chronic Cough: No HX of Shortness of Breath: No Hoarseness: No Hx Chronic Obstructive Pulmonary Disease (COPD): No Hx Asthma: No Hx Emphysema: No Hx Sleep Apnea: No Hx Respiratory Tract Infection/Cold (presently): No Do You Snore Loudly (louder than talking or can be heard): No Do You Often Feel Tired/ Fatigued/ Sleepy Dring Daytime?: No Has Anyone Observed You Stop Breathing During Sleep?: No Result (for STOP score): Negative Hx Smoking: Yes (QUIT 10+ YRS AGO) Smoking Status: Former smoker Gastrointestinal Hx Gastrointestinal Disorders: Yes (DIVERTICULITS) Hx Gastrointestinal Bleed: No Hx Ulcer: No Hx Hiatal Hernia: No Difficulty Chewing/Swallowing: No Special diet followed at home: Yes (NO NUTS) Hx Unplanned Weight Loss of 20#: No HX Unplanned Weight Gain of 20#: No Neurological Hx Seizures: No HX Syncope/Blackout Spells/Unconsciousness: No Hx Transient Ischemic Attacks (TIA): No Hx Multiple Sclerosis: No Hx Parkinson's Disease: No Hx Head/Neck Injury: No Hx Headaches: No Hx Back Injury/Pain: No Recent Onset of Speech Difficulty: No Restless Legs: No Does patient have nerve stimulator: No Blood Disorder Hx Leukemia: No Bleeding Tendencies: No Hx Deep Vein Thrombosis: No Hx High Cholesterol: No Blood Transmitted Disease: No Hx Hepatitis: No Hx Cirrhosis: No Hx Anemia: No Hx Blood Disorders: No Reproduction : No Genitourinary Hx Renal Disease: No Musculoskeletal Hx Arthritis: No Hx Rheumatoid Arthritis: No Hx Gout: No Recent Onset of an Orthopedic Problem: No Endocrine Hx Diabetes: No Thyroid Disease: Yes (ON MED) Hx Steroid Therapy: No Psycho/Social Hx Substance Use: No Hx Alcohol Use: Yes (SOCIAL) Hx Anxiety: No Hx Depression: No Mental Illness: No Hx Dementia: No Miscellaneous Hx Cancer: Yes (MELANOMA ON BACK & LEG) Recent Exposure to Contagious Disease: No Hx of C-Diff: No Any Loose Teeth: No Allergies No Known Allergies Allergy (Verified 09/14/24 08:14) Discharge Is Pt Admitted From a Assisted, or a Residential: No After D/C, Where Do you Plan to Go: Return Home From the [facility] History Number of Risk Factors: 3 Vital Signs Vital Signs Vital Signs: 09/14/24 08:13 09/14/24 08:13 Temperature 99.1 F Temperature Source Temporal Pulse Rate 87 Respiratory Rate 16 Respiratory Pattern Normal Blood Pressure 113/92 H Blood Pressure Mean 99 Blood Pressure Source Monitor Blood Pressure Position Semi-Fowlers Blood Pressure Location Left Arm Pulse Ox 98 Oxygen Delivery Method Room Air Weight Weight: 154 lb 1.65 oz Body Mass Index (BMI) 25.6 Physical Exam Const alert and oriented x3 HEENT normocephalic Eyes PERRL Resp normal respiratory effort and normal air movement Cardio regular rate and regular rhythm GI soft to palpation, non-tender and non-distended Extremity normal to inspection Assessment & Plan Assessment/Plan (1) Personal history of colonic polyps: PLAN: I explained endoscopy in detail to the patient. I explained the risks including but not limited to stroke or heart attack with anesthesia, perforation of the GI tract, bleeding, infection. I explained that any of these could necessitate further emergency surgery. The patient understands and all questions were answered sufficiently. The patient wishes to proceed with procedure. Andrew Dave MD Pager: [facility] [address] [place] [address], [address] [place] [address] Office: Surgery Risks - Colonoscopy Risks Include but are not Limited To: Risks include but are not limited to: Bleeding, perforation requiring further surgery, inability to complete colonoscopy requiring barium enema.
--- NOTE | 2024-09-14 09:27 | OP.CCLET_ITS ---
09/14/2024 Desmond Zuniga [address] [place] [address] Re : Colonoscopy procedure for Geovanny Calderon Dear Dr. Zuniga This procedure was performed on Saturday, September 14, 2024. My impressions and recommendations are as follows: Impressions : - One small polyp at the hepatic flexure, removed with a hot snare. Complete resection. Polyp tissue not retrieved. Recommendations : - Discharge patient to home. - Resume previous diet. - Continue present medications. - Repeat colonoscopy in 5 years for surveillance. My findings are described in the full procedure note, which is enclosed. If I can be of further assistance, please feel free to contact me at Doctor phone number(s): , Work: . Sincerely, Andrew Dvae MD 09/14/2024 9:26:44 AM This report has been signed electronically.
--- NOTE | 2024-09-14 09:27 | OP.COLON_ITS ---
Patient Name: Geovanny Calderon Procedure Date: 09/14/2024 8:49 AM Date of : 1950 Age: 73 Procedure: Colonoscopy Indications: High risk colon cancer surveillance: Personal history of colonic polyps Providers: Andrew Dave MD Referring MD: Desmond Zuniga Medicines: Propofol per Anesthesia Patient Profile: This is a 73 year old female. Refer to note in patient chart for documentation of history and physical. Last Colonoscopy: 5 years ago. Complications: No immediate complications. Estimated blood loss: Minimal. Procedure: Pre-Anesthesia Assessment: - Prior to the procedure, a History and Physical was performed, and patient medications and allergies were reviewed. The patient's tolerance of previous anesthesia was also reviewed. The risks and benefits of the procedure and the sedation options and risks were discussed with the patient. All questions were answered, and informed consent was obtained. Prior Anticoagulants: The patient has taken no anticoagulant or antiplatelet agents. After reviewing the risks and benefits, the patient was deemed in satisfactory condition to undergo the procedure. After I obtained informed consent, the scope was passed under direct vision. Throughout the procedure, the patient's blood pressure, pulse, and oxygen saturations were monitored continuously. The pediatric colonoscope was introduced through the anus and advanced to the cecum, identified by appendiceal orifice and ileocecal valve. The colonoscopy was performed without difficulty. The patient tolerated the procedure well. The quality of the bowel preparation was good. The ileocecal valve, appendiceal orifice, and rectum were photographed. Scope In: 9:03:42 AM Scope Withdrawal Time 0 hours 8 minutes 2 seconds Scope Out: 9:23:47 AM Total Procedure Duration Time 0 hours 20 minutes 5 seconds Findings: A small polyp was found in the hepatic flexure. The polyp was removed with a hot snare. Resection was complete, but the polyp tissue was not retrieved. Impression: - One small polyp at the hepatic flexure, removed with a hot snare. Complete resection. Polyp tissue not retrieved. Recommendation: - Discharge patient to home. - Resume previous diet. - Continue present medications. - Repeat colonoscopy in 5 years for surveillance. Procedure Code(s): --- Professional --- 32164, Colonoscopy, flexible; with removal of tumor(s), polyp(s), or other lesion(s) by snare technique Diagnosis Code(s): --- Professional --- Z86.010, Personal history of colonic polyps D12.3, Benign neoplasm of transverse colon (hepatic flexure or splenic flexure) CPT copyright 2021 [employer]. All rights reserved. The codes documented in this report are preliminary and upon bottom precipitator operator review may be revised to meet current compliance requirements. Andrew Dave MD 09/14/2024 9:26:44 AM This report has been signed electronically. Number of Addenda: 0 Note Initiated On: 09/14/2024 8:49 AM
[2024-09-14 09:28] VITALS: BP 102/67; BP 113/92; PULSE 79; RESP 18; TEMP 36.4; O2SAT 96
--- NOTE | 2024-09-14 09:31 | PCM.POST.ANE ---
Anesthesia: Postop Eval I Current Vital Signs Temperature: 97.5 F Pulse Rate: 77 Blood Pressure: 102/67 Respiratory Rate: 16 Pulse Ox: 96 Oxygen Delivery Method: Room Air Assessment Airway patent: Yes Spontaneous unlabored respirations: Yes Mental status: Awake and Calm nausea: No Vomiting: No Anesthesia Complication: No Fluid Hydration Crystalloid volume administer (ml): 55 Total IV fluid infused: 55 Progress Note Anesthesia document: Postop Eval 1 completed: Yes
[2024-09-14 09:32] VITALS: BP 102/67; BP 113/92; BP 84/60; PULSE 77; PULSE 79; RESP 16; RESP 18; TEMP 36.4; O2SAT 95; O2SAT 96
[2024-09-14 09:40] VITALS: BP 101/58; BP 113/92; BP 94/64; PULSE 73; RESP 18; TEMP 36.2; O2SAT 95; O2SAT 96
[2024-09-14 10:15] VITALS: BP 113/92
--- NOTE | 2024-09-14 11:10 | PCM.POSTANE2 ---
Anesthesia Postop Eval I Sum Postop Eval Completion status Anesthesia document: Postop Eval 1 completed: Yes Anesthesia Postop Eval I Summary Anesthesia Postop Eval I Summary: Anesthesia Postop Eval I: Assessment Summary Airway patent Yes 09/14/24 09:32 [email or web address] Spontaneous unlabored Yes 09/14/24 09:32 [email or web address] respirations Mental status Awake,Calm 09/14/24 09:32 [email or web address] nausea No 09/14/24 09:32 [email or web address] Vomiting No 09/14/24 09:32 [email or web address] Anesthesia Postop Eval I: Fluid Summary Crystalloid volume administer 55 09/14/24 09:32 [email or web address] (ml) Colloids volume administered ( ml) Blood Product volume administered (ml) Total IV fluid infused 55 09/14/24 09:32 [email or web address] Anesthesia Postop Eval I: Summary Notes Anesthesia Complication No 09/14/24 09:32 [email or web address] Anesthesia Complication Comment: Post-operative progress note Anesthesia: Postop Eval II Evaluation Mental status: Awake Pain Level: 0 nausea: No Vomiting: No
== END 2024-09-14 10:15 | disposition home or self-care (01) ==
LOC: EN 08:02 → AC 08:03
PROVIDERS: PCP Family Medicine; Referring Provider Family Medicine; Visit Provider Surgery
PROC: 0DJD8ZZ Inspection of Lower Intestinal Tract, Via Natural or Artificial Opening Endoscopic (ICD-10-PCS; CPT 45378; principal; 2024-09-14 08:55)
DX: Z12.11 Encounter for screening for malignant neoplasm of colon (principal); K63.5 Polyp of colon; I10 Essential (primary) hypertension; E03.9 Hypothyroidism, unspecified; Z86.0100 Personal history of colon polyps, unspecified; Z79.899 Other long term (current) drug therapy; Z87.891 Personal history of nicotine dependence
CPT/HCPCS: 45385; A4216; J2405